=== PATIENT | female | born 1990 | race American Indian/Alaskan Native ===

== ENCOUNTER 2018-01-19 04:57 | Outpatient (CLI) | payer MEDICAID ==
[2018-01-19 05:09] VITALS: BP 131/84
[2018-01-19] MEDS ORDERED: LACTATED RINGERS 1,000 ML IV ONE (05:58)
[2018-01-19 06:28] LABS: Bilirubin,Urine NEG (Negative); Blood,Urine MOD (Negative); Color,Urine Straw (Yellow); Protein,Urine <15 mg/dL mg/dL (Negative); RBC,Urine < 1.0 /HPF (0.0-6.0); Urobilinogen,Urine < 2.0 mg/dL (<2.0); WBC,Urine < 1.0 /HPF (0.0-6.0)
== END 2018-01-19 07:07 | disposition home or self-care (01) ==
LOC: TRG 04:57
PROVIDERS: ATTEND Obstetrics & Gynecology
DX: O46.93 Antepartum hemorrhage, unspecified, third trimester (principal); Z3A.32 32 weeks gestation of pregnancy; Z87.891 Personal history of nicotine dependence
CPT/HCPCS: 81001

== ENCOUNTER 2021-05-27 16:46 | Outpatient (CLI) | payer MEDICAID, OTHER ==
[2021-05-27 17:16] VITALS: BP 123/80
[2021-05-27] MEDS ORDERED: LACTATED RINGERS 500 ML IV ONE (17:39)
[2021-05-27 18:25] LABS: Bilirubin,Urine NEG (Negative); Blood,Urine NEG (Negative); Color,Urine Straw (Yellow); Protein,Urine <15 mg/dL mg/dL (Negative); RBC,Urine < 1.0 /HPF (0.0-6.0); Urobilinogen,Urine < 2.0 mg/dL (<2.0)
[2021-05-27 18:41] LABS: WBC,Urine < 1.0 /HPF (0.0-6.0)
--- NOTE | 2021-05-27 18:59 | Ultrasound Report ---
Limited obstetrical ultrasound INDICATION: 33 week 1 day , PATRICIA assessment COMPARISON: None pertinent FINDINGS: Advanced intrauterine is noted in a cephalic position. Anterior placenta is free of the internal cervical os. Qualitatively amniotic fluid volume appears satisfactory and PATRICIA is with in normal limits at 12.8 cm. Renal heart rate was documented at 141 bpm. BIOPHYSICAL PROFILE breathing movements: 2/2 movements: 2/2 posture and tone tone: 2/2 Qualitative amniotic fluid volume: 2/2 Total score: 8/8, within normal limits Signer Name: Luca Dior MD Signed: 05/27/2021 6:54 PM Workstation Name: [id number]
== END 2021-05-27 18:41 | disposition home or self-care (01) ==
LOC: TRG 16:46 → APU 16:50 → TRG 18:41
PROVIDERS: ATTEND Obstetrics & Gynecology
DX: Z34.93 Encounter for supervision of normal pregnancy, unspecified, third trimester (principal); Z3A.33 33 weeks gestation of pregnancy
CPT/HCPCS: 59025; 76815; 76819; 81001

== ENCOUNTER 2021-07-05 15:18 | Emergency (ER) | payer MEDICAID ==
--- NOTE | 2021-07-05 18:51 | Event Note ---
ED Screening Note Date of service: 07/05/21 Time: 18:47 ED Screening Note: Patient sent here by her VENDOR QUALITY SUPERVISOR for admission for preeclampsia Patient gave 8 days ago States she has been having swelling of the hands and feet and that at her follow-up appointment today her blood pressure was noted to be about 170/100 She denies hypertension during her , but has had issues with hypertension during in the past Denies chest pain or shortness of breath Feet noted to be swollen bilaterally Blood pressure currently 141/80 Patient is unsure of the name of her VENDOR QUALITY SUPERVISOR, however she states the group did her child here this ED This initial assessment/diagnostic orders/clinical plan/treatment(s) is/are subject to change based on patients health status, clinical progression and re- assessment by fellow clinical providers in the ED. Further treatment and workup at subsequent clinical providers discretion. Patient/guardian urged not to elope from the ED as their condition may be serious if not clinically assessed and managed. Initial orders include: Labs Main ED
[2021-07-05 19:30] LABS: Alanine Aminotransferase 64 units/L (7-56); Albumin 3.9 g/dL (3.9-5); BUN/Creatinine Ratio 14; Blood Urea Nitrogen 10 mg/dL (7-17); Calcium 9.3 mg/dL (8.4-10.2); Hemolysis Index 2
[2021-07-05 19:43] LABS: Basophils # (Auto) 0.1 K/mm3 (0.0-0.1); Basophils % (Auto) 0.7 % (0.0-1.8); Eosinophils # (Auto) 0.3 K/mm3 (0.0-0.4); Eosinophils % (Auto) 4.6 % (0.0-4.3); Hematocrit 37.2 % (30.3-42.9); Lymphocytes % (Auto) 30.1 % (13.4-35.0); Mean Corpuscular HGB Conc 32 % (30-34); Mean Corpuscular Volume 87 fl (79-97); Monocytes # (Auto) 0.4 K/mm3 (0.0-0.8); Monocytes % (Auto) 6.6 % (0.0-7.3); Platelet Count 300 K/mm3 (140-440); Red Blood Count 4.27 M/mm3 (3.65-5.03); Red Cell Distribution Width 14.2 % (13.2-15.2)
[2021-07-05 20:44] LABS: Bilirubin,Urine NEG (Negative); Blood,Urine LG (Negative); Color,Urine Yellow (Yellow); Mucus,Urine FEW /HPF; Protein,Urine <15 mg/dL mg/dL (Negative); Urobilinogen,Urine < 2.0 mg/dL (<2.0)
[2021-07-06 02:30] LABS: Uric Acid 6.9 mg/dL (3.5-7.6)
[2021-07-06 08:29] LABS: Creatinine,Urine 113.6 mg/dL (0.1-20.0); Protein/Creatinine Ratio,Urine 0.31
--- NOTE | 2021-07-06 14:17 | Emergency Department Report ---
ED General Adult HPI - General Chief complaint: Extremity Problem,Nontraumatic Stated complaint: feet and hands swollen Time Seen by Provider: 07/05/21 17:56 Source: patient Mode of arrival: Ambulatory Limitations: No Limitations - History of Present Illness Initial comments: 31-year-old female presents to the hospital currently 9 days with c omplaints of progressively worsening lower extremity edema and elevated blood pressure. Patient was seen in the office prior to arrival on July 05. Blood pressure was 170/100 in the office. Patient was advised to come to the ED for admission. Patient denies headache, chest pain, shortness of breath, abdominal pain, or leg pain. She had preeclampsia during of her 5-year-old but did not have elevated blood pressure or preeclampsia with her more recent . As per medical record NURSES AIDE MD is [facility] - Related Data Home Medications Medication Instructions Recorded Confirmed Last Taken valACYclovir [Valtrex] 1 tab PO DAILY 02/26/18 06/26/21 Unknown metFORMIN 500 mg PO DAILY 06/26/21 06/26/21 06/26/21 07:00 Previous Rx's Medication Instructions Recorded Last Taken Type Multivitamin with Iron 1 each PO DAILY #30 tablet 02/28/18 Unknown Rx [Multivitamins with Iron] Ferrous Sulfate [Feosol 325 MG tab] 325 mg PO BID #60 tablet 03/02/18 Unknown Rx Ibuprofen [Motrin 800 MG tab] 800 mg PO Q6H PRN #30 tablet 06/26/21 Unknown Rx oxyCODONE /ACETAMINOPHEN [Percocet 1 tab PO Q6H PRN #30 tablet 06/26/21 Unknown Rx 5/325 mg] Allergies Allergy/AdvReac Type Severity Reaction Status Date / Time Sulfa (Sulfonamide Allergy Rash Verified 06/26/21 09:23 Antibiotics) ED Review of Systems ROS: Stated complaint: feet and hands swollen Other details as noted in HPI ED Past Medical Hx - Past Medical History Previous Medical History?: Yes Hx Hypertension: Yes (BABY ASPIRIN) Hx Congestive Heart Failure: No Hx Diabetes: Yes (METFORMIN) Hx Deep Vein Thrombosis: No Hx Renal Disease: No Hx Sickle Cell Disease: No Hx Seizures: No Hx Asthma: No Hx COPD: No Hx HIV: No - Surgical History Past Surgical History?: No - Social History Smoking Status: Never Smoker Substance Use Type: None - Medications Home Medications: Home Medications Medication Instructions Recorded Confirmed Last Taken Type valACYclovir [Valtrex] 1 tab PO DAILY 02/26/18 06/26/21 Unknown History Multivitamin with Iron 1 each PO DAILY #30 tablet 02/28/18 06/26/21 Unknown Rx [Multivitamins with Iron] Ferrous Sulfate [Feosol 325 MG tab] 325 mg PO BID #60 tablet 03/02/18 06/26/21 Unknown Rx Ibuprofen [Motrin 800 MG tab] 800 mg PO Q6H PRN #30 tablet 06/26/21 Unknown Rx metFORMIN 500 mg PO DAILY 06/26/21 06/26/21 06/26/21 07:00 History oxyCODONE /ACETAMINOPHEN [Percocet 1 tab PO Q6H PRN #30 tablet 06/26/21 Unknown Rx 5/325 mg] ED Physical Exam - General Limitations: No Limitations - Other Other exam information: General: No acute distress Head: Atraumatic Eyes: normal appearance ENT: Moist mucous membranes Neck: Normal appearance, no midline tenderness Chest: Clear to auscultation bilaterally CV: Regular rate and rhythm Abdomen: Soft, normal bowel sounds, nontender, nondistended, no rebound or guarding Back: Normal inspection Extremity: Trace pedal edema and distal lower extremity edema. No calf te nderness. No leg asymmetry, warmth, or erythema Neuro: Alert O x 3, no facial asymmetry, speech clear, no gross motor sensory deficit Psych: Appropriate behavior Skin: No rash ED Course Vital Signs 07/05/21 07/05/21 07/05/21 15:23 18:53 20:28 Temperature 98.2 F Pulse Rate 66 59 L 57 L Respiratory 15 14 18 Rate Blood Pressure 141/86 165/101 Blood Pressure 153/99 [Right] O2 Sat by Pulse 99 98 100 Oximetry 07/06/21 07/06/21 07/06/21 03:26 03:30 03:36 Temperature 98.4 F Pulse Rate 77 Respiratory 19 Rate Blood Pressure 130/89 122/86 Blood Pressure [Right] O2 Sat by Pulse 98 97 Oximetry 07/06/21 07/06/21 07/06/21 03:46 04:00 04:16 Temperature Pulse Rate 66 61 65 Respiratory 15 19 16 Rate Blood Pressure 139/90 134/80 120/82 Blood Pressure [Right] O2 Sat by Pulse 98 98 98 Oximetry 07/06/21 07/06/21 07/06/21 04:30 04:46 05:00 Temperature Pulse Rate 63 67 63 Respiratory 17 18 16 Rate Blood Pressure 119/76 144/85 131/77 Blood Pressure [Right] O2 Sat by Pulse 98 98 98 Oximetry 07/06/21 07/06/21 07/06/21 05:16 05:30 05:46 Temperature Pulse Rate 85 59 L 61 Respiratory 24 17 13 Rate Blood Pressure 146/95 124/81 123/78 Blood Pressure [Right] O2 Sat by Pulse 99 99 99 Oximetry 07/06/21 07/06/21 07/06/21 06:00 06:15 06:30 Temperature Pulse Rate 62 64 59 L Respiratory 17 14 17 Rate Blood Pressure 118/81 129/90 129/82 Blood Pressure [Right] O2 Sat by Pulse 99 99 99 Oximetry 07/06/21 07/06/21 07/06/21 06:36 06:46 07:00 Temperature 98.0 F Pulse Rate 59 L 69 Respiratory 20 18 Rate Blood Pressure 134/86 136/76 Blood Pressure [Right] O2 Sat by Pulse 99 99 Oximetry 07/06/21 07/06/21 07/06/21 07:15 07:30 07:46 Temperature Pulse Rate 61 82 76 Respiratory 14 21 11 L Rate Blood Pressure 165/95 134/90 151/78 Blood Pressure [Right] O2 Sat by Pulse 99 99 Oximetry 07/06/21 07/06/21 07/06/21 10:31 10:46 11:00 Temperature Pulse Rate Respiratory Rate Blood Pressure 151/78 138/90 131/87 Blood Pressure [Right] O2 Sat by Pulse 100 98 97 Oximetry 07/06/21 07/06/21 07/06/21 11:16 11:30 11:46 Temperature Pulse Rate Respiratory Rate Blood Pressure 134/86 149/95 155/97 Blood Pressure [Right] O2 Sat by Pulse 97 99 100 Oximetry 07/06/21 07/06/21 07/06/21 12:00 12:16 12:30 Temperature Pulse Rate Respiratory Rate Blood Pressure 148/89 135/82 137/81 Blood Pressure [Right] O2 Sat by Pulse 99 98 99 Oximetry 07/06/21 07/06/21 07/06/21 12:46 13:00 13:25 Temperature Pulse Rate 73 Respiratory Rate Blood Pressure 146/89 141/90 141/90 Blood Pressure [Right] O2 Sat by Pulse 99 96 Oximetry 07/06/21 13:30 Temperature Pulse Rate 83 Respiratory 15 Rate Blood Pressure 141/90 Blood Pressure [Right] O2 Sat by Pulse 99 Oximetry - Consultations Consultation #1: 07/06/21 14:[address] Aguilar on-call E [employer] ANALYST doctor who recommends labetalol 100 mg twice daily and outpatient follow-up on Friday if patient denies headache ED Medical Decision Making - Lab Data Result diagrams: 07/05/21 18:56 07/05/21 18:56 Lab Results 07/05/21 07/05/21 07/05/21 Range/Units 18:56 18:56 18:56 WBC 6.7 (4.5-11.0) K/mm3 RBC 4.27 (3.65-5.03) M/mm3 Hgb 12.0 (10.1-14.3) gm/dl Hct 37.2 (30.3-42.9) % MCV 87 (79-97) fl MCH 28 (28-32) pg MCHC 32 (30-34) % RDW 14.2 (13.2-15.2) % Plt Count 300 (140-440) K/mm3 Lymph % (Auto) 30.1 (13.4-35.0) % Dixie % (Auto) 6.6 (0.0-7.3) % Eos % (Auto) 4.6 H (0.0-4.3) % Baso % (Auto) 0.7 (0.0-1.8) % Lymph # (Auto) 2.0 (1.2-5.4) K/mm3 Dixie # (Auto) 0.4 (0.0-0.8) K/mm3 Eos # (Auto) 0.3 (0.0-0.4) K/mm3 Baso # (Auto) 0.1 (0.0-0.1) K/mm3 Seg Neutrophils % 58.0 (40.0-70.0) % Seg Neutrophils # 3.9 (1.8-7.7) K/mm3 Sodium 142 (137-145) mmol/L Potassium 4.5 (3.6-5.0) mmol/L Chloride 105.2 (98-107) mmol/L Carbon Dioxide 25 (22-30) mmol/L Anion Gap 16 mmol/L BUN 10 (7-17) mg/dL Creatinine 0.7 (0.6-1.2) mg/dL Estimated GFR > 60 ml/min BUN/Creatinine Ratio 14 % Glucose 99 (65-100) mg/dL Uric Acid 6.9 (3.5-7.6) mg/dL Calcium 9.3 (8.4-10.2) mg/dL Total Bilirubin 0.30 (0.1-1.2) mg/dL AST 21 (5-40) units/L ALT 64 H (7-56) units/L Alkaline Phosphatase 105 (35-129) units/L Lactate Dehydrogenase 192 H (91-180) units/L Total Protein 6.7 (6.3-8.2) g/dL Albumin 3.9 (3.9-5) g/dL Albumin/Globulin Ratio 1.4 % Urine Color (Yellow) Urine Turbidity (Clear) Urine pH (5.0-7.0) Ur Specific Stanton (1.003-1.030) Urine Protein (Negative) mg/dL Urine Glucose (UA) (Negative) mg/dL Urine Ketones (Negative) mg/dL Urine Blood (Negative) Urine Nitrite (Negative) Urine Bilirubin (Negative) Urine Urobilinogen (<2.0) mg/dL Ur Leukocyte Esterase (Negative) Urine WBC (Auto) (0.0-6.0) /HPF Urine RBC (Auto) (0.0-6.0) /HPF U Epithel Cells (Auto) (0-13.0) /HPF Urine Mucus /HPF Urine Creatinine (0.1-20.0) mg/dL Protein/Creatinin Ratio Urine Total Protein (5-11.8) mg/dL 07/05/21 07/06/21 Range/Units Unknown Unknown WBC (4.5-11.0) K/mm3 RBC (3.65-5.03) M/mm3 Hgb (10.1-14.3) gm/dl Hct (30.3-42.9) % MCV (79-97) fl MCH (28-32) pg MCHC (30-34) % RDW (13.2-15.2) % Plt Count (140-440) K/mm3 Lymph % (Auto) (13.4-35.0) % Dixie % (Auto) (0.0-7.3) % Eos % (Auto) (0.0-4.3) % Baso % (Auto) (0.0-1.8) % Lymph # (Auto) (1.2-5.4) K/mm3 Dixie # (Auto) (0.0-0.8) K/mm3 Eos # (Auto) (0.0-0.4) K/mm3 Baso # (Auto) (0.0-0.1) K/mm3 Seg Neutrophils % (40.0-70.0) % Seg Neutrophils # (1.8-7.7) K/mm3 Sodium (137-145) mmol/L Potassium (3.6-5.0) mmol/L Chloride (98-107) mmol/L Carbon Dioxide (22-30) mmol/L Anion Gap mmol/L BUN (7-17) mg/dL Creatinine (0.6-1.2) mg/dL Estimated GFR ml/min BUN/Creatinine Ratio % Glucose (65-100) mg/dL Uric Acid (3.5-7.6) mg/dL Calcium (8.4-10.2) mg/dL Total Bilirubin (0.1-1.2) mg/dL AST (5-40) units/L ALT (7-56) units/L Alkaline Phosphatase (35-129) units/L Lactate Dehydrogenase (91-180) units/L Total Protein (6.3-8.2) g/dL Albumin (3.9-5) g/dL Albumin/Globulin Ratio % Urine Color Yellow (Yellow) Urine Turbidity Clear (Clear) Urine pH 6.0 (5.0-7.0) Ur Specific Stanton 1.012 (1.003-1.030) Urine Protein <15 mg/dl (Negative) mg/dL Urine Glucose (UA) Neg (Negative) mg/dL Urine Ketones Neg (Negative) mg/dL Urine Blood Lg (Negative) Urine Nitrite Neg (Negative) Urine Bilirubin Neg (Negative) Urine Urobilinogen < 2.0 (<2.0) mg/dL Ur Leukocyte Esterase Tr (Negative) Urine WBC (Auto) 3.0 (0.0-6.0) /HPF Urine RBC (Auto) 20.0 (0.0-6.0) /HPF U Epithel Cells (Auto) 2.0 (0-13.0) /HPF Urine Mucus Few /HPF Urine Creatinine 113.6 H (0.1-20.0) mg/dL Protein/Creatinin Ratio 0.31 Urine Total Protein 35 H (5-11.8) mg/dL - Medical Decision Making 31-year female presents to the hospital who has had almost 24 hours to ED observation with mildly elevated blood pressure. UA does not have protein. Patient's edema to lower extremities has improved with leg elevation in the department. Patient denies headache, chest pain, shortness of breath. Patient will be discharged to fill her BP prescription provided by her MD. 1 dose of labetalol provided prior to discharge Critical Care Time: No Critical care attestation.: If time is entered above; I have spent that time in minutes in the direct care of this critically ill patient, excluding procedure time. ED Disposition Clinical Impression: edema, hypertension Disposition: HOME / SELF CARE / HOMELESS Is pt being admited?: No Condition: Stable Instructions: Edema, Hypertension During , Hypertension (ED) Additional Instructions: Take the blood pressure medication prescribed by your doctor. Follow-up with your doctor on Friday. Return if symptoms worsen as indicated by your discharge instructions. Referrals: E [employer]ER[employer] ANALYST, MD [Other] - 3-5 Days
[2021-07-06 14:48] VITALS: BP 145/92
== END 2021-07-06 15:31 | disposition home or self-care (01) ==
LOC: ED 15:18
DX: O12.05 Gestational edema, complicating the puerperium (principal); O16.5 Unspecified maternal hypertension, complicating the puerperium
CPT/HCPCS: 36415; 80053; 81001; 82570; 83615; 84156; 84550; 85025; 99283